=== PATIENT | male | born 1965 | race Caucasian/White ===

== ENCOUNTER 2024-03-02 19:31 | Inpatient (IN) | payer OTHER, MEDICARE ==
[~2024-03-02] VITALS: Ht 172.7 cm; Wt 76.2 kg
[2024-03-02 19:59] LABS: BASOPHILS # (AUTO) 0.1 K/UL (0.0-0.2); BASOPHILS % (AUTO) 0.8 % (0.0-2.0); DIFFERENTIAL COMMENT 1; EOSINOPHILS # (AUTO) 0.3 K/uL (0.0-0.7); EOSINOPHILS % (AUTO) 3.4 % (0.0-7.0); HEMATOCRIT 44.2 % (36.7-47.1); HEMOGLOBIN 14.7 g/dL (12.5-16.3); LYMPHOCYTES # (AUTO) 3.1 K/uL (0.8-4.8); LYMPHOCYTES % (AUTO) 37.1 % (20.5-51.5); MEAN CORPUSCULAR HEMOGLOBIN 29.2 uug (23.8-33.4); MEAN CORPUSCULAR HGB CONC 33 g/dL (32.5-36.3); MEAN CORPUSCULAR VOLUME 87.6 fL (73.0-96.2); MONOCYTES # (AUTO) 0.9 K/uL (0.1-1.30); MONOCYTES % (AUTO) 10.3 % (0.0-11.0); NEUTROPHILS % (AUTO) 48.4 % (38.5-71.5); PLATELET COUNT (AUTO) 193 K/uL (152-348); RED BLOOD CELL COUNT(AUTO) 5.05 MIL/uL (4.06-5.63); RED CELL DISTRIBUTION WIDTH 12.8 % (12.1-16.2); WHITE BLOOD COUNT (AUTO) 8.3 K/uL (3.6-10.2)
[2024-03-02 20:06] LABS: CALCIUM 8.9 mg/dL (8.5-10.1); CARBON DIOXIDE 26 mmol/L (21-32); CHLORIDE 104 mmol/L (98-107); CREATININE 0.9 mg/dL (0.6-1.3); GLUCOSE 119 mg/dL (74-106); POTASSIUM 3.5 mmol/L (3.5-5.1); SODIUM SERUM 141 mmol/L (136-145); UREA NITROGEN, BLOOD 26 mg/dL (7-18)
[2024-03-02 20:11] LABS: ALANINE AMINOTRANSFERASE 16 U/L (16-63); ALBUMIN 3.9 g/dL (3.4-5.0); ALKALINE PHOSPHATASE 57 U/L (50-136); ASPARTATE AMINOTRANSFERASE 7 U/L (15-37); BILIRUBIN,DIRECT 0.1 mg/dL (0.0-0.2); BILIRUBIN,TOTAL 0.6 mg/dL (0.2-1.0); ETHANOL < 3 MG/DL (0-10); TOTAL PROTEIN, SERUM 7.3 g/dL (6.4-8.2)
[2024-03-02] MEDS ORDERED: OLANZAPINE 10 MG VIAL IM ONE (20:14)
[2024-03-02] MEDS: OLANZAPINE 10 MG VIAL IM ONE (20:25)
[2024-03-02] MEDS ORDERED: ROSU5TAB PO (20:33)
[2024-03-02] MEDS ORDERED: [UNRECOGNIZED DRUG - CODE] PO (20:33)
[2024-03-02] MEDS ORDERED: DONE10TA11 (20:33)
[2024-03-02] MEDS ORDERED: DIVA500T2 (20:33)
[2024-03-02] MEDS ORDERED: ASPI81TA49 PO (20:33)
[2024-03-02] MEDS ORDERED: diphenhydrAMINE 50 MG/1 ML VIAL ONE (21:42)
[2024-03-02] MEDS ORDERED: LORAZEPAM 2 MG/1 ML VIAL ONE (21:43)
[2024-03-02] MEDS: LORAZEPAM 2 MG/1 ML VIAL IM ONE (21:51)
[2024-03-02] MEDS: diphenhydrAMINE 50 MG/1 ML VIAL IM ONE (21:51)
[2024-03-02 23:03] LABS: *BILIRUBIN,URIN NEGATIVE (NEGATIVE); *CLARITY,URINE CLEAR (CLEAR); *COLOR,URINE YELLOW (YELLOW); *KETONES,URINE 1+ (NEGATIVE); *PROTEIN,URINE NEGATIVE (NEGATIVE); *UROBILINOGEN,URINE 0.2 E.U./dl (NORMAL); LEUKOCYTE ESTERASE ,URINE NEGATIVE (NEGATIVE); NITRITE, URINE NEGATIVE (NEGATIVE); PH,URINE 5.5 (5.0-8.0); UGLUCOSE NEGATIVE (NEGATIVE)
[2024-03-02 23:04] LABS: *BLOOD, URINE TRACE (NEGATIVE)
[2024-03-02 23:13] LABS: *AMPHETAMINE, URINE NEGATIVE (NEGATIVE); *BARBITURATE, URINE NEGATIVE (NEGATIVE); *BENZODIAZEPINE, URINE NEGATIVE (NEGATIVE); *CANNABINOID, URINE NEGATIVE (NEGATIVE); *COCCAINE, URINE NEGATIVE (NEGATIVE); *OPIATE, URINE NEGATIVE (NEGATIVE); *PHENCYCLIDINE SCREEN,URINE NEGATIVE (NEGATIVE); FENTANYL, URINE NEGATIVE (NEGATIVE)
[2024-03-02 23:17] LABS: BACTERIA,URINE NONE SEEN /HPF (NONE SEEN); SQUAMOUS EPITHELIAL CELL,UR NONE SEEN /HPF (NONE SEEN); WBC,URINE NONE SEEN /HPF (0-3)
[2024-03-03] MEDS ORDERED: MAG HYDROX/AL HYDROX/SIMETH 30 ML LIQUID UDC PO PRN (04:45)
[2024-03-03] MEDS ORDERED: TEMAZEPAM 7.5 MG CAPSULE PO PRN (04:45)
[2024-03-03] MEDS ORDERED: LORAZEPAM 0.5 MG TABLET PO PRN ×2 (04:45)
[2024-03-03] MEDS ORDERED: MAGNESIUM HYDROXIDE 30 ML LIQUID UDC PO PRN (04:45)
[2024-03-03 08:18] VITALS: BP 90/51; TEMP 98; O2SAT 98
[2024-03-03] MEDS: DIVALPROEX 250 MG TABLET.DR PO SCH ×2 (12:30→20:53)
[2024-03-03 15:18] VITALS: BP 115/65; TEMP 98.2; O2SAT 98
[2024-03-03 20:00] VITALS: BP 97/54; TEMP 97.5; O2SAT 97
[2024-03-03] MEDS: ATORVASTATIN 10 MG TABLET PO SCH (20:53)
[2024-03-03] MEDS ORDERED: Medication Not On Formulary EA (Rosuvastatin Calcium (Crestor) 5 MG) PO SCH (21:00)
[2024-03-03] MEDS: LORAZEPAM 0.5 MG TABLET PO PRN (21:45)
[2024-03-04] MEDS: TEMAZEPAM 7.5 MG CAPSULE PO PRN (00:19)
[2024-03-04 08:16] VITALS: BP 107/66; TEMP 98; O2SAT 98
[2024-03-04 08:18] LABS: GLUCOSE FASTING 85 mg/dL (70-115); VALPROIC ACID 49 ug/mL (50-100)
[2024-03-04] MEDS ORDERED: Medication Not On Formulary EA (Ubidecarenone (Coenzyme Q10) 100 MG) PO SCH (09:00)
[2024-03-04] MEDS: ASPIRIN EC 81 MG TABLET.DR PO SCH (09:25)
[2024-03-04 15:34] VITALS: BP 117/74; TEMP 98; O2SAT 96
[2024-03-04 20:00] VITALS: BP 110/57; TEMP 97.8; O2SAT 98
[2024-03-04] MEDS: DIVALPROEX 500 MG TABLET.DR PO SCH (20:11)
[2024-03-05 08:09] VITALS: BP 117/74; TEMP 98; O2SAT 94
[2024-03-05] MEDS: LORAZEPAM 2 MG/1 ML VIAL IM ONE (10:32)
[2024-03-05] MEDS: OLANZAPINE 10 MG VIAL IM ONE (10:33)
[2024-03-05] MEDS: DIVALPROEX 500 MG TABLET.DR PO SCH (14:15)
[2024-03-05 15:06] VITALS: BP 116/53; TEMP 98; O2SAT 98
[2024-03-05] MEDS: LORAZEPAM 1 MG TABLET PO PRN (16:34)
[2024-03-05] MEDS: OLANZAPINE 2.5 MG TABLET PO SCH (20:17)
[2024-03-05 20:56] VITALS: BP 116/78; TEMP 98.3; O2SAT 96
[2024-03-06 07:53] VITALS: BP 106/53; TEMP 97.6; O2SAT 96
[2024-03-06 16:08] LABS: THYROID STIMULATING HORMONE 2.196 mIU/mL (0.358-3.740)
[2024-03-06 16:30] VITALS: BP 130/84; TEMP 97.9; O2SAT 96
[2024-03-06 20:00] VITALS: BP 140/69; TEMP 97.1; O2SAT 96
[2024-03-07 08:33] VITALS: BP 93/54; TEMP 98.5; O2SAT 97
[2024-03-07 16:28] VITALS: BP 123/69; TEMP 98.3; O2SAT 97
[2024-03-07 21:37] VITALS: BP 102/53; TEMP 98; O2SAT 98
[2024-03-08] MEDS: OLANZAPINE 2.5 MG TABLET PO SCH (17:12)
[2024-03-09 08:16] VITALS: BP 123/77; TEMP 98; O2SAT 98
[2024-03-09] MEDS: OLANZAPINE 2.5 MG TABLET PO SCH (12:29)
[2024-03-09 14:23] VITALS: BP 111/77; TEMP 98; O2SAT 98
[2024-03-09 16:57] LABS: BASOPHILS # (AUTO) 0.1 K/UL (0.0-0.2); EOSINOPHILS # (AUTO) 0.2 K/uL (0.0-0.7); EOSINOPHILS % (AUTO) 2.6 % (0.0-7.0); HEMATOCRIT 45.2 % (36.7-47.1); HEMOGLOBIN 15.7 g/dL (12.5-16.3); LYMPHOCYTES # (AUTO) 2.1 K/uL (0.8-4.8); LYMPHOCYTES % (AUTO) 32.6 % (20.5-51.5); MEAN CORPUSCULAR HGB CONC 35 g/dL (32.5-36.3); MEAN CORPUSCULAR VOLUME 86.3 fL (73.0-96.2); MONOCYTES # (AUTO) 0.6 K/uL (0.1-1.30); MONOCYTES % (AUTO) 8.7 % (0.0-11.0); NEUTROPHILS # (AUTO) 3.5 K/uL (1.8-8.9); NEUTROPHILS % (AUTO) 55.1 % (38.5-71.5); PLATELET COUNT (AUTO) 222 K/uL (152-348); RED BLOOD CELL COUNT(AUTO) 5.24 MIL/uL (4.06-5.63); RED CELL DISTRIBUTION WIDTH 13.1 % (12.1-16.2); WHITE BLOOD COUNT (AUTO) 6.4 K/uL (3.6-10.2)
[2024-03-09 16:58] LABS: DIFFERENTIAL COMMENT 1
[2024-03-09] MEDS: DIVALPROEX SPRINKLE 125 MG CAP.SPRINK PO SCH (17:02)
[2024-03-09 17:13] LABS: ALBUMIN 3.9 g/dL (3.4-5.0); BILIRUBIN,TOTAL 0.5 mg/dL (0.2-1.0); CALCIUM 8.8 mg/dL (8.5-10.1); CREATININE 0.9 mg/dL (0.6-1.3); POTASSIUM 3.7 mmol/L (3.5-5.1); TOTAL PROTEIN, SERUM 7.5 g/dL (6.4-8.2)
[2024-03-09 19:46] VITALS: BP 126/78; TEMP 98.1; O2SAT 96
[2024-03-10 08:03] VITALS: BP 114/82; TEMP 98; O2SAT 94; O2SAT 98
[2024-03-10 16:40] VITALS: BP 133/70; TEMP 98; O2SAT 98
[2024-03-10 19:40] VITALS: BP 135/99; TEMP 98.1; O2SAT 98
[2024-03-11 08:52] VITALS: BP 133/70; TEMP 98; O2SAT 96
[2024-03-11 09:00] VITALS: BP 111/54; TEMP 98; O2SAT 96
[2024-03-11 15:16] VITALS: BP 108/68; TEMP 97.6; O2SAT 98
[2024-03-11] MEDS: OLANZAPINE 10 MG VIAL IM ONE (15:19)
[2024-03-11] MEDS: OLANZAPINE 5 MG TABLET PO SCH ×2 (17:22→20:21)
[2024-03-11 20:00] VITALS: BP 129/73; TEMP 97.8; O2SAT 100
[2024-03-12 08:27] VITALS: BP 131/62; TEMP 98; O2SAT 98
[2024-03-12 15:11] VITALS: BP 104/62; TEMP 98; O2SAT 99
[2024-03-12 20:00] VITALS: BP 125/74; TEMP 98; O2SAT 97
[2024-03-12] MEDS: TEMAZEPAM 15 MG CAPSULE PO PRN (23:19)
[2024-03-13 08:25] VITALS: BP 133/78; TEMP 97.7; O2SAT 98
[2024-03-13 16:18] VITALS: BP 117/69; TEMP 97.9; O2SAT 98
[2024-03-13 20:24] VITALS: BP 110/62; TEMP 98.2; O2SAT 98
[2024-03-14 16:35] VITALS: BP 119/71; TEMP 98; O2SAT 97
[2024-03-14 20:12] VITALS: BP 132/74; TEMP 98.1; O2SAT 96
[2024-03-15] MEDS: ACETAMINOPHEN 325 MG TABLET PO PRN (09:03)
[2024-03-15 16:32] VITALS: BP 134/72; TEMP 98; O2SAT 97
[2024-03-15 20:20] VITALS: BP 103/80; TEMP 98.1; O2SAT 96
[2024-03-16 07:39] VITALS: BP 110/62; TEMP 98.2; O2SAT 98
[2024-03-16 15:44] VITALS: BP 104/56; TEMP 98; O2SAT 98
== END 2024-03-16 17:30 | DRG 885 ==
LOC: ER 19:34 → GPS 03-03 01:10
PROVIDERS: ADMIT Psychiatry & Neurology Psychosomatic Medicine; ATTEND Nurse Practitioner Acute Care
DX: F29 Unspecified psychosis not due to a substance or known physiological condition (principal); F02.83 Dementia in other diseases classified elsewhere, unspecified severity, with mood disturbance; F02.84 Dementia in other diseases classified elsewhere, unspecified severity, with anxiety; G31.09 Other frontotemporal neurocognitive disorder; G93.89 Other specified disorders of brain; E78.5 Hyperlipidemia, unspecified; I69.398 Other sequelae of cerebral infarction; Z79.82 Long term (current) use of aspirin; Z79.899 Other long term (current) drug therapy; R79.89 Other specified abnormal findings of blood chemistry
CPT/HCPCS: 36415; 70450; 71045; 80164; 83921; 84443; 85025; 93005; C1758; G0480; J1200; J2060; J2358; J3490